=== PATIENT | male | born 1985 | race Caucasian/White ===

== ENCOUNTER 2017-08-22 20:07 | Observation (INO) ==
[2017-08-22 20:42] LABS: Bilirubin,Urine Negative (Negative); Blood,Urine Negative (Negative); Clarity,Urine Clear (Clear); Color,Urine Dark Yellow (Yellow); Glucose,Urine (UA) Normal (Normal); Ketones,Urine Negative (Negative); Leukocyte Esterase,Urine Negative (Negative); Nitrite,Urine Negative (Negative); Protein,Urine Negative (Neg-Trace); Specific Gravity,Urine 1.027 (1.010-1.025); Urobilinogen,Urine Normal (Normal)
--- NOTE | 2017-08-22 20:42 | Emergency Department Note ---
START Narrative - START START: Patient presents from home with family for evaluation of suicidal ideation. He states that he was at his primary care provider's office earlier today and expressed thoughts of harming himself. His PCP suggested that he come here for psychiatric admission. His family states that he has had problems with depression off and on for many years. This has gotten much worse since his mother . He has been seen by a counselor in the past and has been put on antidepressants by his primary care provider. He states that none of this has helped. Medical clearance labs have been ordered. Nursing notes a been reviewed. Vitals have been reviewed. Patient will be admitted to a medical bed for further evaluation including psychiatric evaluation and treatment.
[2017-08-22 20:49] LABS: Amphetamine Screen,Urine Negative ng/mL (Cutoff=1000); Barbiturate Screen,Urine Negative ng/mL (Cutoff=200); Benzodiazepines Screen,Urine Positive ng/mL (Cutoff=200); Cannabinoid Screen,Urine Positive ng/mL (Cutoff = 50); Cocaine Screen,Urine Negative ng/mL (Cutoff= 300); Opiate Screen,Urine Negative ng/mL (Cutoff=300); Phencyclidine Screen,Urine Negative ng/mL (Cutoff=25)
[2017-08-22 20:49] LABS: Basophils % 0.3 %; Eosinophils # 0.2 K/mcL (0.0-0.6); Hematocrit 47.2 % (37.5-50.1); Hemoglobin 16.5 g/dL (12.9-16.9); Immature Granulocytes % 0.3 % (0-4); Immature Platelets 19.3 % (1.1-6.1); Lymphocytes # 3.3 K/mcL (0.6-4.6); Lymphocytes % 37.6 %; Mean Corpuscular Hemoglobin 32.1 pg (28.0-33.3); Mean Corpuscular Volume 91.8 fL (83.0-100.0); Mean Platelet Volume 13.4 fL (9.4-12.4); Monocytes # 0.6 K/mcL (0.0-1.3); Monocytes % 6.9 %; Neutrophils # 4.7 K/mcL (1.6-8.9); Platelet Count 140 K/mcL (140-400); Red Blood Count 5.14 M/mcL (4.19-5.50); Red Cell Distribution Width 11.9 % (11.5-14.5); Segmented Neutrophils % 52.9 %
--- NOTE | 2017-08-22 20:55 | Emergency Department Note ---
Disposition Clinical Impression: Suicidal ideation, Medical clearance for psychiatric admission Disposition: Still a Patient Condition: Undetermined Referrals: NONE,PCP [Primary Care Provider] - Forms: ED Satisfaction Letter Time of Disposition: 22:57 Psych HPI - General Chief Complaint: ED Psychiatric Symptoms Stated Complaint: SI Time Seen by Provider: 08/22/17 20:28 Source: patient Mode of arrival: ambulatory Limitations: no limitations Nursing Notes Reviewed: Yes Vital Signs Reviewed: Yes - History of Present Illness HPI Narrative: 31-year-old male with history of anxiety arrives to [facility] emergency department with suicidal ideation. The patient saw his doctor and states that he is going through a lot of home and started expressing some suicidal ideations. The patient denies any plan or any attempt today but states he is that he feels as though the patient has been bounce around between physicians and is not getting good care. He is very concerned about the patient as well. We worked the patient up per psychiatric protocol. Pt complaint: suicidal ideation, feels depressed Onset (ago): unknown Duration: changing over time, getting worse History of similar episodes: Yes Improves with: none Worsens with: none Context: significant life stressor Alleged intoxication: No Associated Psychiatric Symptoms: depression, suicidal ideation, anxiety Associated symptoms: Reports: denies other symptoms Traumatic symptoms: denies traumatic injury Treatments prior to arrival: none Self harm or harm to others: admits thoughts of self harm - Related Data Home Medications Medication Instructions Recorded Confirmed Centrum Complete Multivit Tab 1 tab PO QDPC 08/03/15 12/02/15 ClonazePAM [Klonopin] 1 mg PO BID 08/03/15 12/02/15 Tadalafil [Cialis] 1 tab PO PRN PRN 08/03/15 12/02/15 Previous Rx's Medication Instructions Recorded Omeprazole [PriLOSEC] 20 mg PO DAILY #30 capsule. 11/11/15 OxyCODONE/APAP 10/325 [Percocet 1 each PO Q6HR PRN #12 tablet 03/16/17 10/325 MG] Allergies Allergy/AdvReac Type Severity Reaction Status Date / Time Cefaclor [From [facility]] Allergy See Verified 08/10/17 13:46 Comments Penicillins Allergy Rash Verified 08/10/17 13:46 [place] Allergy Difficulty Verified 08/10/17 13:46 Breathing codeine AdvReac Nausea Verified 08/10/17 13:46 All systems ED: reviewed and negative except as stated. Constitutional: Denies: fever, chills, weakness, weight change ENT ED: Denies: congestion Cardiovascular: Denies: chest pain Respiratory: Denies: cough, dyspnea, wheezes Gastrointestinal: Denies: abdominal pain, nausea, vomiting Musculoskeletal: Denies: back pain Neurological: Denies: headache, numbness, paresthesias, confusion Psychiatric: Reports: anxiety, depression, suicidal thoughts Past Medical History - Past Medical History Attestation: Yes The following information was validated with the patient. Source: patient Medical history: Reports: no medical history Surgical history: Reports: other Psychiatric history: Reports: anxiety, depression - Social History Smoking Status: Light tobacco smoker Smokeless Tobacco Status: No Alcohol use: Reports: none Drug use: Reports: marijuana Physical Exam - General Limitations: no limitations General appearance: alert, in no apparent distress - Head Head exam: atraumatic, normocephalic, normal inspection - Eye Eye exam: Present: normal appearance, PERRL, EOMI - ENT ENT exam: normal exam, normal oropharynx, mucous membranes moist - Neck Neck exam: Present: normal inspection, full ROM, trachea midline - Chest Chest inspection: Present: normal inspection, symmetric chest wall rise - Respiratory Respiratory exam: Present: normal lung sounds bilaterally - Cardiovascular Cardiovascular exam: Present: regular rate, normal rhythm, normal heart sounds - Abdominal Exam Abdominal exam: Present: soft, Non-Tender. Absent: tenderness, distention, guarding, rebound, rigidity - Extremities Exam Extremities exam: Present: normal inspection, full ROM. Absent: tenderness, pedal edema - Neurological Exam Neurological exam: Present: alert, oriented X3 - Psychiatric Psychiatric exam: Present: depressed, suicidal ideation Course - Reevaluation(s) Reevaluation #1: 1 a called and notified. Medically clear. Time: 21:33 Vital Signs Temperature 97.8 F 08/22/17 20:09 Pulse Rate 83 08/22/17 20:09 Respiratory Rate 16 08/22/17 20:09 Blood Pressure 143/96 08/22/17 20:09 O2 Sat by Pulse Oximetry 98 08/22/17 20:09 Temperature 97.8 F 08/22/17 20:09 Pulse Rate 83 08/22/17 20:09 Respiratory Rate 16 08/22/17 20:09 Blood Pressure 143/96 08/22/17 20:09 O2 Sat by Pulse Oximetry 98 08/22/17 20:09 Oxygen Delivery Oxygen Delivery Room Air Psych - MDM Narrative Medical decision making narrative: Patient has been medically cleared. One A currently evaluating patient. Patient signed out tonight team, Dr. Nobles for disposition. - Lab Data Result diagrams: 08/22/17 20:27 08/22/17 20:27 Lab Results 08/22/17 08/22/17 08/22/17 Range/Units 20:15 20:15 20:27 WBC 8.9 (4.3-11.1) K/mcL RBC 5.14 (4.19-5.50) M/mcL Hgb 16.5 (12.9-16.9) g/dL Hct 47.2 (37.5-50.1) % MCV 91.8 (83.0-100.0) fL MCH 32.1 (28.0-33.3) pg MCHC 35.0 (31.6-35.5) g/dL RDW 11.9 (11.5-14.5) % Plt Count 140 (140-400) K/mcL MPV 13.4 H (9.4-12.4) fL Immature Gran % 0.3 (0-4) % Seg Neutrophils % 52.9 % Lymphocytes % 37.6 % Monocytes % 6.9 % Eosinophils % 2.0 % Basophils % 0.3 % Neutrophils # 4.7 (1.6-8.9) K/mcL Lymphocytes # 3.3 (0.6-4.6) K/mcL Monocytes # 0.6 (0.0-1.3) K/mcL Eosinophils # 0.2 (0.0-0.6) K/mcL Basophils # 0.0 (0.0-0.2) K/mcL Immature Plt Fraction 19.3 H (1.1-6.1) % Sodium (136-145) mEq/L Potassium (3.5-4.5) mEq/L Chloride (98-109) mEq/L Carbon Dioxide (19-29) mEq/L BUN (8-26) mg/dL Creatinine (0.72-1.25) mg/dL Est GFR ( Amer) (> 60) Est GFR (Non-Af Amer) (> 60) BUN/Creatinine Ratio (6-26) Glucose (70-99) mg/dL Calculated Osmolality (280-300) Calcium (8.6-10.8) mg/dL TSH (0.350-4.840) mcIU/mL Urine Color Dark Yellow (Yellow) Urine Clarity Clear (Clear) Urine pH 6.0 (5.0-8.0) pH Units Ur Specific [place] 1.027 H (1.010-1.025) Urine Protein Negative (Neg-Trace) mg/dL Urine Glucose (UA) Normal (Normal) mg/dL Urine Ketones Negative (Negative) mg/dL Urine Blood Negative (Negative) Urine Nitrite Negative (Negative) Urine Bilirubin Negative (Negative) Urine Urobilinogen Normal (Normal) mg/dL Ur Leukocyte Esterase Negative (Negative) Salicylates (15-30) mg/dL Urine Opiates Screen Negative (Kicbxy=060) ng/mL Acetaminophen (10-30) mcg/mL Ur Barbiturates Screen Negative (Fobarw=257) ng/mL Ur Phencyclidine Scrn Negative (Cutoff=25) ng/mL Ur Amphetamines Screen Negative (Byokmh=3125) ng/mL U Benzodiazepines Scrn Positive H (Brouou=345) ng/mL Urine Cocaine Screen Negative (Cutoff= 300) ng/mL U Marijuana (THC) Screen Positive H (Cutoff = 50) ng/mL Ethyl Alcohol (0-10) mg/dL 08/22/ Range/Units 20:27 WBC (4.3-11.1) K/mcL RBC (4.19-5.50) M/mcL Hgb (12.9-16.9) g/dL Hct (37.5-50.1) % MCV (83.0-100.0) fL MCH (28.0-33.3) pg MCHC (31.6-35.5) g/dL RDW (11.5-14.5) % Plt Count (140-400) K/mcL MPV (9.4-12.4) fL Immature Gran % (0-4) % Seg Neutrophils % % Lymphocytes % % Monocytes % % Eosinophils % % Basophils % % Neutrophils # (1.6-8.9) K/mcL Lymphocytes # (0.6-4.6) K/mcL Monocytes # (0.0-1.3) K/mcL Eosinophils # (0.0-0.6) K/mcL Basophils # (0.0-0.2) K/mcL Immature Plt Fraction (1.1-6.1) % Sodium 141 (136-145) mEq/L Potassium 3.8 (3.5-4.5) mEq/L Chloride 104 (98-109) mEq/L Carbon Dioxide 28 (19-29) mEq/L BUN 11 (8-26) mg/dL Creatinine 0.96 (0.72-1.25) mg/dL Est GFR ( Amer) > 60 (> 60) Est GFR (Non-Af Amer) > 60 (> 60) BUN/Creatinine Ratio 11 (6-26) Glucose 92 (70-99) mg/dL Calculated Osmolality 291 (280-300) Calcium 10.0 (8.6-10.8) mg/dL TSH 1.542 (0.350-4.840) mcIU/mL Urine Color (Yellow) Urine Clarity (Clear) Urine pH (5.0-8.0) pH Units Ur Specific [place] (1.010-1.025) Urine Protein (Neg-Trace) mg/dL Urine Glucose (UA) (Normal) mg/dL Urine Ketones (Negative) mg/dL Urine Blood (Negative) Urine Nitrite (Negative) Urine Bilirubin (Negative) Urine Urobilinogen (Normal) mg/dL Ur Leukocyte Esterase (Negative) Salicylates < 5.0 L (15-30) mg/dL Urine Opiates Screen (Fobbrd=820) ng/mL Acetaminophen < 1.0 L (10-30) mcg/mL Ur Barbiturates Screen (Lprjis=072) ng/mL Ur Phencyclidine Scrn (Cutoff=25) ng/mL Ur Amphetamines Screen (Ygehbk=2934) ng/mL U Benzodiazepines Scrn (Qnuspq=636) ng/mL Urine Cocaine Screen (Cutoff= 300) ng/mL U Marijuana (THC) Screen (Cutoff = 50) ng/mL Ethyl Alcohol < 10 (0-10) mg/dL Psychiatric Medical Clearance - Medical Clearance Checklist Medical History: Thrombocytopenia (Acute) Fatigue (Acute) Severe major depression (Acute) Acute anxiety (Inactive) Acute anxiety (Inactive) Chest pain (Inactive) Generalized weakness (Inactive) Palpitation (Inactive) Plantar fasciitis of left foot (Inactive) Right acetabular fracture (Inactive) No Social History Section defined Current Vitals: Last Vital Signs Temp 97.8 F 08/22/17 20:09 Pulse 83 08/22/17 20:09 Resp 16 08/22/17 20:09 BP 143/96 08/22/17 20:09 Pulse Ox 98 08/22/17 20:09 Psychiatric Lab Panel: Drug Levels and Toxicity 08/22/17 08/22/17 20:15 20:27 Urine Opiates Screen Negative Acetaminophen < 1.0 L Ur Barbiturates Screen Negative Ur Phencyclidine Scrn Negative Ur Amphetamines Screen Negative U Benzodiazepines Scrn Positive H Urine Cocaine Screen Negative U Marijuana (THC) Screen Positive H Ethyl Alcohol < 10 Abnormal Labs: Abnormal lab results MPV 13.4 fL (9.4-12.4) H 08/22/17 20:27 Immature Plt Fraction 19.3 % (1.1-6.1) H 08/22/17 20:27 Ur Specific [place] 1.027 (1.010-1.025) H 08/22/17 20:15 Salicylates < 5.0 mg/dL (15-30) L 08/22/17 20:27 Acetaminophen < 1.0 mcg/mL (10-30) L 08/22/17 20:27 U Benzodiazepines Scrn Positive ng/mL (Potkas=356) H 08/22/17 20:15 U Marijuana (THC) Screen Positive ng/mL (Cutoff = 50) H 08/22/17 20:15 Statement of Medical Clearance: I have evaluated the patient, reviewed diagnostic information, and certify that the patient's medical condition is sufficiently stable that transfer to the psychiatric unit does not pose a significant risk of deterioration.
[2017-08-22 21:03] LABS: Acetaminophen < 1.0 mcg/mL (10-30); BUN/Creatinine Ratio 11 (6-26); Blood Urea Nitrogen 11 mg/dL (8-26); Carbon Dioxide 28 mEq/L (19-29); Chloride 104 mEq/L (98-109); Ethanol < 10 mg/dL (0-10); Glucose 92 mg/dL (70-99); Osmolality,Calculated 291 (280-300); Potassium 3.8 mEq/L (3.5-4.5); Salicylate < 5.0 mg/dL (15-30); Sodium 141 mEq/L (136-145); eGFR For African Americans > 60 (> 60); eGFR For Non-African Americans > 60 (> 60)
--- NOTE | 2017-08-22 21:15 | Emergency Department Note ---
START Narrative - START START: I examined this patient and my medical decision-making was reviewed with the Resident Physician. I agree with the documented findings, disposition and treatment plan as described except to the extent set forth below. 31 yo M here for suicidal ideation sent into ER by his doctor. no true plan at this time. has outside stressors state she doesn't want to live seems withdrawn consult with psych after clearance
[2017-08-22 21:23] LABS: Thyroid Stimulating Hormone 1.542 mcIU/mL (0.350-4.840)
--- NOTE | 2017-08-23 00:37 | Emergency Department Note ---
Disposition Clinical Impression: Suicidal ideation, Medical clearance for psychiatric admission Disposition: Admitted As Inpatient Condition: Fair Time of Disposition: 00:36 Psych HPI - General Chief Complaint: ED Psychiatric Symptoms Stated Complaint: SI Time Seen by Provider: 08/22/17 20:28 Source: patient Mode of arrival: ambulatory - History of Present Illness Duration: changing over time, getting worse Improves with: none Worsens with: none Associated symptoms: Reports: denies other symptoms Treatments prior to arrival: none - Related Data Home Medications Medication Instructions Recorded Confirmed Centrum Complete Multivit Tab 1 tab PO QDPC 08/03/15 12/02/15 ClonazePAM [Klonopin] 1 mg PO BID 08/03/15 12/02/15 Tadalafil [Cialis] 1 tab PO PRN PRN 08/03/15 12/02/15 Previous Rx's Medication Instructions Recorded Omeprazole [PriLOSEC] 20 mg PO DAILY #30 capsule. 11/11/15 OxyCODONE/APAP 10/325 [Percocet 1 each PO Q6HR PRN #12 tablet 03/16/17 10/325 MG] Allergies Allergy/AdvReac Type Severity Reaction Status Date / Time Cefaclor [From Ceclor] Allergy See Verified 08/10/17 13:46 Comments Penicillins Allergy Rash Verified 08/10/17 13:46 [place] Allergy Difficulty Verified 08/10/17 13:46 Breathing codeine AdvReac Nausea Verified 08/10/17 13:46 Constitutional: Denies: fever, chills, weakness, weight change ENT ED: Denies: congestion Cardiovascular: Denies: chest pain Respiratory: Denies: cough, dyspnea, wheezes Gastrointestinal: Denies: abdominal pain, nausea, vomiting Musculoskeletal: Denies: back pain Neurological: Denies: headache, numbness, paresthesias, confusion Psychiatric: Reports: anxiety, depression, suicidal thoughts Past Medical History - Past Medical History Medical history: Reports: no medical history Surgical history: Reports: other Psychiatric history: Reports: anxiety, depression - Social History Smoking Status: Light tobacco smoker Smokeless Tobacco Status: No Alcohol use: Reports: none Drug use: Reports: marijuana Physical Exam - General Limitations: no limitations General appearance: alert, in no apparent distress Course Course Narrative: This patient was signed out at shift change from Dr. Sparks and Dr. Manriquez. Please refer to their notes for complete details of the history and physical examination. At shift change patient has been medically cleared and is awaiting psychiatric evaluation. He was evaluated by the [address] psych service and is being admitted here to the psychiatric floor. Vital Signs Temperature 97.8 F 08/22/17 20:09 Pulse Rate 83 08/22/17 20:09 Respiratory Rate 16 08/22/17 20:09 Blood Pressure 143/96 08/22/17 20:09 O2 Sat by Pulse Oximetry 98 08/22/17 20:09 Temperature 97.8 F 08/22/17 20:09 Pulse Rate 83 08/22/17 20:09 Respiratory Rate 16 08/22/17 20:09 Blood Pressure 143/96 08/22/17 20:09 O2 Sat by Pulse Oximetry 98 08/22/17 20:09 Oxygen Delivery Oxygen Delivery Room Air Psych - Lab Data Result diagrams: 08/22/17 20:27 08/22/17 20:27 Lab Results 08/22/17 08/22/17 08/22/17 Range/Units 20:15 20:15 20:27 WBC 8.9 (4.3-11.1) K/mcL RBC 5.14 (4.19-5.50) M/mcL Hgb 16.5 (12.9-16.9) g/dL Hct 47.2 (37.5-50.1) % MCV 91.8 (83.0-100.0) fL MCH 32.1 (28.0-33.3) pg MCHC 35.0 (31.6-35.5) g/dL RDW 11.9 (11.5-14.5) % Plt Count 140 (140-400) K/mcL MPV 13.4 H (9.4-12.4) fL Immature Gran % 0.3 (0-4) % Seg Neutrophils % 52.9 % Lymphocytes % 37.6 % Monocytes % 6.9 % Eosinophils % 2.0 % Basophils % 0.3 % Neutrophils # 4.7 (1.6-8.9) K/mcL Lymphocytes # 3.3 (0.6-4.6) K/mcL Monocytes # 0.6 (0.0-1.3) K/mcL Eosinophils # 0.2 (0.0-0.6) K/mcL Basophils # 0.0 (0.0-0.2) K/mcL Immature Plt Fraction 19.3 H (1.1-6.1) % Sodium (136-145) mEq/L Potassium (3.5-4.5) mEq/L Chloride (98-109) mEq/L Carbon Dioxide (19-29) mEq/L BUN (8-26) mg/dL Creatinine (0.72-1.25) mg/dL Est GFR ( Amer) (> 60) Est GFR (Non-Af Amer) (> 60) BUN/Creatinine Ratio (6-26) Glucose (70-99) mg/dL Calculated Osmolality (280-300) Calcium (8.6-10.8) mg/dL TSH (0.350-4.840) mcIU/mL Urine Color Dark Yellow (Yellow) Urine Clarity Clear (Clear) Urine pH 6.0 (5.0-8.0) pH Units Ur Specific [place] 1.027 H (1.010-1.025) Urine Protein Negative (Neg-Trace) mg/dL Urine Glucose (UA) Normal (Normal) mg/dL Urine Ketones Negative (Negative) mg/dL Urine Blood Negative (Negative) Urine Nitrite Negative (Negative) Urine Bilirubin Negative (Negative) Urine Urobilinogen Normal (Normal) mg/dL Ur Leukocyte Esterase Negative (Negative) Salicylates (15-30) mg/dL Urine Opiates Screen Negative (Dmsrwn=202) ng/mL Acetaminophen (10-30) mcg/mL Ur Barbiturates Screen Negative (Sbhrpy=855) ng/mL Ur Phencyclidine Scrn Negative (Cutoff=25) ng/mL Ur Amphetamines Screen Negative (Wibbdq=5452) ng/mL U Benzodiazepines Scrn Positive H (Sdsawb=323) ng/mL Urine Cocaine Screen Negative (Cutoff= 300) ng/mL U Marijuana (THC) Screen Positive H (Cutoff = 50) ng/mL Ethyl Alcohol (0-10) mg/dL 08/22/17 Range/Units 20:27 WBC (4.3-11.1) K/mcL RBC (4.19-5.50) M/mcL Hgb (12.9-16.9) g/dL Hct (37.5-50.1) % MCV (83.0-100.0) fL MCH (28.0-33.3) pg MCHC (31.6-35.5) g/dL RDW (11.5-14.5) % Plt Count (140-400) K/mcL MPV (9.4-12.4) fL Immature Gran % (0-4) % Seg Neutrophils % % Lymphocytes % % Monocytes % % Eosinophils % % Basophils % % Neutrophils # (1.6-8.9) K/mcL Lymphocytes # (0.6-4.6) K/mcL Monocytes # (0.0-1.3) K/mcL Eosinophils # (0.0-0.6) K/mcL Basophils # (0.0-0.2) K/mcL Immature Plt Fraction (1.1-6.1) % Sodium 141 (136-145) mEq/L Potassium 3.8 (3.5-4.5) mEq/L Chloride 104 (98-109) mEq/L Carbon Dioxide 28 (19-29) mEq/L BUN 11 (8-26) mg/dL Creatinine 0.96 (0.72-1.25) mg/dL Est GFR ( Amer) > 60 (> 60) Est GFR (Non-Af Amer) > 60 (> 60) BUN/Creatinine Ratio 11 (6-26) Glucose 92 (70-99) mg/dL Calculated Osmolality 291 (280-300) Calcium 10.0 (8.6-10.8) mg/dL TSH 1.542 (0.350-4.840) mcIU/mL Urine Color (Yellow) Urine Clarity (Clear) Urine pH (5.0-8.0) pH Units Ur Specific [place] (1.010-1.025) Urine Protein (Neg-Trace) mg/dL Urine Glucose (UA) (Normal) mg/dL Urine Ketones (Negative) mg/dL Urine Blood (Negative) Urine Nitrite (Negative) Urine Bilirubin (Negative) Urine Urobilinogen (Normal) mg/dL Ur Leukocyte Esterase (Negative) Salicylates < 5.0 L (15-30) mg/dL Urine Opiates Screen (Qtjmlq=416) ng/mL Acetaminophen < 1.0 L (10-30) mcg/mL Ur Barbiturates Screen (Ycrher=545) ng/mL Ur Phencyclidine Scrn (Cutoff=25) ng/mL Ur Amphetamines Screen (Ibxnbf=9174) ng/mL U Benzodiazepines Scrn (Uzdxms=299) ng/mL Urine Cocaine Screen (Cutoff= 300) ng/mL U Marijuana (THC) Screen (Cutoff = 50) ng/mL Ethyl Alcohol < 10 (0-10) mg/dL Psychiatric Medical Clearance - Medical Clearance Checklist Medical History: Thrombocytopenia (Acute) Fatigue (Acute) Severe major depression (Acute) Suicidal ideation (Acute) Medical clearance for psychiatric admission (Acute) Acute anxiety (Inactive) Acute anxiety (Inactive) Chest pain (Inactive) Generalized weakness (Inactive) Palpitation (Inactive) Plantar fasciitis of left foot (Inactive) Right acetabular fracture (Inactive) No Social History Section defined Current Vitals: Last Vital Signs Temp 97.8 F 08/22/17 20:09 Pulse 83 08/22/17 20:09 Resp 16 08/22/17 20:09 BP 143/96 08/22/17 20:09 Pulse Ox 98 08/22/17 20:09 Psychiatric Lab Panel: Drug Levels and Toxicity 08/22/17 08/22/17 20:15 20:27 Urine Opiates Screen Negative Acetaminophen < 1.0 L Ur Barbiturates Screen Negative Ur Phencyclidine Scrn Negative Ur Amphetamines Screen Negative U Benzodiazepines Scrn Positive H Urine Cocaine Screen Negative U Marijuana (THC) Screen Positive H Ethyl Alcohol < 10 Abnormal Labs: Abnormal lab results MPV 13.4 fL (9.4-12.4) H 08/22/17 20:27 Immature Plt Fraction 19.3 % (1.1-6.1) H 08/22/17 20:27 Ur Specific [place] 1.027 (1.010-1.025) H 08/22/17 20:15 Salicylates < 5.0 mg/dL (15-30) L 08/22/17 20:27 Acetaminophen < 1.0 mcg/mL (10-30) L 08/22/17 20:27 U Benzodiazepines Scrn Positive ng/mL (Riwdfd=503) H 08/22/17 20:15 U Marijuana (THC) Screen Positive ng/mL (Cutoff = 50) H 08/22/17 20:15 Statement of Medical Clearance: I have evaluated the patient, reviewed diagnostic information, and certify that the patient's medical condition is sufficiently stable that transfer to the psychiatric unit does not pose a significant risk of deterioration.
[2017-08-23] MEDS ORDERED: traZODone 50 MG TABLET PO PRN (00:42)
[2017-08-23] MEDS ORDERED: MOM Conc 10 ML UD.LIQ PO PRN (00:42)
[2017-08-23] MEDS ORDERED: *HR* LORazepam 1 MG TABLET PO PRN (00:42)
[2017-08-23] MEDS ORDERED: hydrOXYzine pamoate 25 MG CAPSULE PO PRN (00:42)
[2017-08-23] MEDS ORDERED: *HR* LORazepam 2 MG/ML VIAL IM PRN (00:42)
[2017-08-23] MEDS ORDERED: Haloperidol Lactate 5 MG/ML VIAL IM PRN (00:42)
[2017-08-23] MEDS ORDERED: Mag Hydrox/Al Hydrox/Simeth 30 ML UDC PO PRN (00:42)
[2017-08-23] MEDS ORDERED: Ibuprofen 400 MG TABLET PO PRN (00:51)
[2017-08-23] MEDS ORDERED: Nicotine 2 MG GUM BC PRN (00:51)
--- NOTE | 2017-08-23 10:55 | Discharge Summary ---
Date of Encounter: 08/24/17 Time of Encounter: 10:00 History of Present Illness Chief complaint: Suicidal ideation and anxiety Admitted From: Emergency Dept History of Present Illness: Mr. Parks is a 31 year old male presented to the emergency department was compliant increasing anxiety and suicidal ideation. Patient had no previous psychiatric treatment he reported that his PCP has not been giving him Klonopin and giving him medication including Effexor and Abilify and others patient is dependent on Klonopin for about 10-12 years where he estimates once or twice a day and he has been lying to medication on the streets and at this time she held very anxious and suicidal. He reports hypersomnia for the last 4-5 months, low energy, depression, hopelessness and suicidal ideation. She denies any past suicide attempts or psychiatric treatment. He smokes cigar" and she will forward to 5 cups of coffee a day smoker marijuana on and off denies any use of other drugs. 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 Past Med Surg Social Fam HX - Past Medical History Medical history: no medical history - Past Psychiatric History Psychiatric history: Reports: no psych history - Past Surgical History Surgical History: other - Social History Smoking Status: Light tobacco smoker Smokeless Tobacco Status: No Alcohol use: none Drug use: marijuana - Family History Mother Hx Family Cardiac Disorders: Yes (CT at age 39.) Medications - Discharge Medications Prescriptions: Propranolol [Inderal] 10 mg PO BID #60 tablet Meloxicam [Mobic] 7.5 mg PO DAILY 08/23/17 [History] Venlafaxine XR (24 HR) [Effexor XR] 75 mg PO DAILY 08/23/17 [History] Gabapentin [Neurontin] 300 mg PO BID #0 08/24/17 [Rx] Propranolol [Inderal] 10 mg PO BID #60 tablet 08/24/17 [Rx] 3 Allergy/AdvReac Type Severity Reaction Status Date / Time Cefaclor [From [facility]] Allergy See Verified 08/10/17 13:46 Comments Penicillins Allergy Rash Verified 08/10/17 13:46 [place] Allergy Difficulty Verified 08/10/17 13:46 Breathing codeine AdvReac Nausea Verified 08/10/17 13:46 Review of Systems Psychiatric: Reports: anxiety, suicidal ideation, hopelessness Mental Status Exam - Mental Status Exam Patient orientation: Yes Person, Yes Time, Yes Place Level of alertness: Alert Patient appearance: Appropriate, Well Groomed, Thin Behavior: calm, cooperative, anxious, restless Psychomotor activity: Normal Eye contact: Avoids Eye Contact Mood description: Euthymic/stable, Irritable Affect description: congruent with mood, dysphoric Speech pattern: Normal rate, Normal rhythm, Normal tone Speech Volume: Normal Thought process: Linear, Goal Oriented Thought Content: Yes Suicidal ideation, No Homicidal ideation, No Overt delusions Perceptual Disturbances: No Auditory hallucinations, No Visual hallucinations Judgment: Limited Insight: Partial Results - Vital Signs Vital signs: Temp Pulse Resp BP Pulse Ox 98.3 F 83 16 118/80 98 08/23/17 09:00 08/22/17 20:09 08/23/17 09:00 08/23/17 09:00 08/22/17 20:09 - Labs Labs: Laboratory Last Values WBC 8.9 K/mcL (4.3-11.1) 08/22/17 20: RBC 5.14 M/mcL (4.19-5.50) 08/22/17 20:27 Hgb 16.5 g/dL (12.9-16.9) 08/22/17 20: Hct 47.2 % (37.5-50.1) 08/22/17 20: MCV 91.8 fL (83.0-100.0) 08/22/17 20:27 MCH 32.1 pg (28.0-33.3) 08/22/17 20: MCHC 35.0 g/dL (31.6-35.5) 08/22/17 20: RDW 11.9 % (11.5-14.5) 08/22/17 20:27 Plt Count 140 K/mcL (140-400) 08/22/17 20:27 MPV 13.4 fL (9.4-12.4) H 08/22/17 20: Immature Gran % 0.3 % (0-4) 08/22/17 20:27 Seg Neutrophils % 52.9 % 08/22/17 20:27 Lymphocytes % 37.6 % 08/22/17 20:27 Monocytes % 6.9 % 08/22/17 20:27 Eosinophils % 2.0 % 08/22/17 20: Basophils % 0.3 % 08/22/17 20: Neutrophils # 4.7 K/mcL (1.6-8.9) 08/22/17 20: Lymphocytes # 3.3 K/mcL (0.6-4.6) 08/22/17 20: Monocytes # 0.6 K/mcL (0.0-1.3) 08/22/17 20: Eosinophils # 0.2 K/mcL (0.0-0.6) 08/22/17: Basophils # 0.0 K/mcL (0.0-0.2) 08/22/17 20: Immature Plt Fraction 19.3 % (1.1-6.1) H 08/22/17 20: Sodium 141 mEq/L (136-145) 08/22/17: Potassium 3.8 mEq/L (3.5-4.5) 08/22/17 20: Chloride 104 mEq/L (98-109) 08/22/17: Carbon Dioxide 28 mEq/L (19-29) 08/22/17 20: BUN 11 mg/dL (8-26) 08/22/17 20: Creatinine 0.96 mg/dL (0.72-1.25) 08/22/17 20: Est GFR ( Amer) > 60 (> 60) 08/22/17 20: Est GFR (Non-Af Amer) > 60 (> 60) 08/22/17 20: BUN/Creatinine Ratio 11 (6-26) 08/22/17: Glucose 92 mg/dL (70-99) 08/22/17: Calculated Osmolality 291 (280-300) 08/22/17 20: Calcium 10.0 mg/dL (8.6-10.8) 08/22/17 20: TSH 1.542 mcIU/mL (0.350-4.840) 08/22/17 20: Urine Color Dark Yellow (Yellow) 08/22/17 20: Urine Clarity Clear (Clear) 08/22/17 20: Urine pH 6.0 pH Units (5.0-8.0) 08/22/17 20: Ur Specific Martin 1.027 (1.010-1.025) H 08/22/17 20:15 Urine Protein Negative mg/dL (Neg-Trace) 08/22/17 20:15 Urine Glucose (UA) Normal mg/dL (Normal) 08/22/17 20:15 Urine Ketones Negative mg/dL (Negative) 08/22/17 20:15 Urine Blood Negative (Negative) 08/22/17 20:15 Urine Nitrite Negative (Negative) 08/22/17 20:15 Urine Bilirubin Negative (Negative) 08/22/17 20:15 Urine Urobilinogen Normal mg/dL (Normal) 08/22/17 20:15 Ur Leukocyte Esterase Negative (Negative) 08/22/17 20:15 Salicylates < 5.0 mg/dL (15-30) L 08/22/17 20:27 Urine Opiates Screen Negative ng/mL (Yrbetn=376) 08/22/17 20:15 Acetaminophen < 1.0 mcg/mL (10-30) L 08/22/17 20:27 Ur Barbiturates Screen Negative ng/mL (Solvny=423) 08/22/17 20:15 Ur Phencyclidine Scrn Negative ng/mL (Cutoff=25) 08/22/17 20:15 Ur Amphetamines Screen Negative ng/mL (Bkuhaj=8449) 08/22/17 20:15 U Benzodiazepines Scrn Positive ng/mL (Xcocfk=970) H 08/22/17 20:15 Urine Cocaine Screen Negative ng/mL (Cutoff= 300) 08/22/17 20:15 U Marijuana (THC) Screen Positive ng/mL (Cutoff = 50) H 08/22/17 20:15 Ethyl Alcohol < 10 mg/dL (0-10) 08/22/17 20:27 Diagnosis - Discharge Diagnosis (1) Suicidal ideation Status: Acute (2) Benzodiazepine dependence Status: Acute (3) Tetrahydrocannabinol (THC) use disorder, mild, abuse Status: Acute Assessment and Plan - Patient/Caregiver Discharge Instructions Activity: resume usual activities as tolerated Diet: regular diet - Follow up Plan Follow up with: [facility] [Outside] - 09/19/17 3:30 pm (The above appointment is with Nicholas Karimi for outpatient psychiatric assessment and medication management services) [facility] [Outside] - 08/30/17 1:00 pm (The above appointment is with Ivon Brooks for outpatient mental health counseling.) John Cruz, [Non-Partnered Physician] - 08/29/17 5:20 pm (The above appointment is with Dr. Cruz for primary healthcare and medication management services.) Functional capacity at discharge: independent ambulation Overall status at discharge: Stable Disposition: Home, Self-Care Provider Date of admission: 08/23/17 00:40 Primary care physician: PCP NONE Discharging clinician: Anatoliy Ramírezim Hospital Course Hospital course: Mr. Parks is a 31 year old male admitted for anxiety and suicidal ideation. Also he has been dependent on benzodiazepine and having medication changes with his PCP. Patient also expressed extreme anxiety and suicidal thoughts without plan. On the units patient medication was reviewed and he was started on Effexor XR 75 mg daily and gabapentin 200 mg twice a day in addition to propranolol 10 mg twice daily. Patient responded positively to medication changes he was educated about benzodiazepine dependence and long-term side effects and cognitive deficits. He was advised to reduce his smoking and caffeine intake. His discharge plans was completed by social staff worker including referral to mental health's and counseling. On discharge patient was medically stable tolerating medication without any problems. Denies any suicidal ideation and motivated to start his therapy. - Time Spent with Patient Total time spent providing and/or coordinating discharge services: Greater than 30 minutes Procedures - Procedures Procedures: Medication Management, Crisis Stabilization, Supportive Therapy, Group Therapy, Psychoeducational Therapy Quality - Multiple Antipsychotics Patient discharged on 2 or more antipsychotic medications: No
[2017-08-23] MEDS: Venlafaxine XR (24 HR) 75 MG CAP.ER.24H PO SCH (12:18)
[2017-08-23] MEDS: Gabapentin 100 MG CAPSULE PO SCH ×2 (12:18→21:07)
[2017-08-24] MEDS: Gabapentin 100 MG CAPSULE PO SCH (09:00)
[2017-08-24] MEDS: Venlafaxine XR (24 HR) 75 MG CAP.ER.24H PO SCH (09:00)
[2017-08-24 11:36] VITALS: BP 124/82
== END 2017-08-24 18:38 | disposition home or self-care (01) ==
LOC: EMEROO 20:07 → 1ANU 20:07
PROVIDERS: ADMIT Psychiatry & Neurology Psychiatry; ATTEND Psychiatry & Neurology Psychiatry